=== PATIENT | female | born 2000 | race Caucasian/White ===

== ENCOUNTER 2022-01-17 01:28 | Emergency (ER) | payer OTHER ==
[2022-01-17 01:40] VITALS: BP 120/83; PULSE 95; RESP 17; TEMP 98.1; BMI 32.3
[2022-01-17 02:53] LABS: BASO % 0.8 % (0-2.0); HEMATOCRIT 35.8 % (32.4-45.2); LYMPH % 20.7 % (8-40); MCHC 33.6 g/dl (32.0-36.0); MEAN CELL VOLUME 83.2 fl (80-96); MEAN PLT VOLUME 9.3 fl (7.5-11.1); MONO % 5.9 % (3.8-10.2); NEUT % 70.6 % (42.8-82.8); PLATELET COUNT 332 10^3/uL (134-434); RDW 13.8 % (11.6-15.6); WHITE BLOOD COUNT 10.3 K/mm3 (4.0-10.0)
[2022-01-17 03:16] LABS: CALCIUM 8.7 mg/dL (8.5-10.1)
[2022-01-17 03:17] LABS: ALBUMIN 4.1 g/dl (3.4-5.0); BLOOD UREA NITROGEN 15.1 mg/dL (7-18)
[2022-01-17 03:20] LABS: CREATININE 0.9 mg/dL (0.55-1.3)
[2022-01-17 03:21] LABS: BILIRUBIN,TOTAL 0.5 mg/dL (0.2-1)
[2022-01-17 03:22] LABS: TOT PROT 7.8 g/dl (6.4-8.2)
== END 2022-01-17 04:12 | disposition home or self-care (01) ==
LOC: JER 01:28
DX: N93.9 Abnormal uterine and vaginal bleeding, unspecified (principal)
CPT/HCPCS: 36415; 80053; 84702; 85025; 86850; 86900; 86901; 99283-25